=== PATIENT | male | born 1950 | race Caucasian/White ===

== ENCOUNTER 2018-11-23 13:36 | Outpatient (CLI) | payer OTHER, MEDICARE ==
[~2018-11-23 13:36] MED LIST: HYDR12.517 PO; METF500T17 PO
[2018-11-23] MEDS ORDERED: OMNIPAQUE 350 MG/ML, 100ML BOTTLE ONE (15:14)
== END 2018-11-23 23:59 | disposition home or self-care (01) ==
LOC: CFH 13:36
PROVIDERS: ATTEND Urology
DX: K66.1 Hemoperitoneum (principal)
CPT/HCPCS: 72193; 82565; Q9967